=== PATIENT | male | born 1985 | race Caucasian/White ===

== ENCOUNTER 2022-07-13 16:09 | Emergency (ER) | payer MEDICAID ==
[~2022-07-13] VITALS: Ht 167.6 cm; Wt 70.0 kg
[2022-07-13] MEDS ORDERED: ACETAMINOPHEN 325MG TABLET PO ONE (17:30)
[2022-07-13] MEDS ORDERED: KETOROLAC 60MG/2ML VIAL IM ONE (17:45)
[2022-07-13] MEDS ORDERED: IBUP-2029 MT (17:46)
[2022-07-13 18:09] VITALS: BP 148/88
== END 2022-07-13 18:11 | disposition home or self-care (01) ==
LOC: ER 16:09
DX: R51.9 Headache, unspecified (principal); E11.9 Type 2 diabetes mellitus without complications; E78.00 Pure hypercholesterolemia, unspecified; I10 Essential (primary) hypertension; I25.2 Old myocardial infarction
CPT/HCPCS: 70450; 96372; 99284; J1885

== ENCOUNTER 2022-09-10 22:30 | Emergency (ER) | payer SELFPAY ==
[~2022-09-10] VITALS: Ht 167.6 cm; Wt 71.6 kg
[~2022-09-10 22:30] MED LIST: IBUP-2029 MT
[2022-09-11] MEDS ORDERED: LIDOCAINE HCL 1% 20ML VIAL (Pyxis) INJ INFIL ONE (00:45)
[2022-09-11] MEDS ORDERED: HYDROCODONE/ACETAMINOPHEN 10/325MG TABLET PO ONE (00:45)
[2022-09-11 03:46] VITALS: BP 112/77
== END 2022-09-11 03:50 | disposition home or self-care (01) ==
LOC: ER 22:30
DX: S62.396A Other fracture of fifth metacarpal bone, right hand, initial encounter for closed fracture (principal); E11.9 Type 2 diabetes mellitus without complications; W18.39XA Other fall on same level, initial encounter; Y93.89 Activity, other specified; Y92.9 Unspecified place or not applicable
CPT/HCPCS: 26605; 73080; 73090; 73130; 99284

== ENCOUNTER 2025-09-22 06:22 | Inpatient (IN) | payer MEDICAID ==
[~2025-09-22] VITALS: Ht 167.6 cm; Wt 67.1 kg
[~2025-09-22 06:22] MED LIST changes: +IBUP-1455 MT; -IBUP-2029 MT
[2025-09-22] MEDS ORDERED: METF-416 PO (06:49)
[2025-09-22] MEDS ORDERED: ASPI-1497 PO (06:49)
[2025-09-22] MEDS ORDERED: LIP40 PO (06:49)
[2025-09-22] MEDS ORDERED: EMPA10TA PO (06:49)
[2025-09-22] MEDS ORDERED: CLOP75TA33 PO (06:49)
[2025-09-22] MEDS ORDERED: LIDOCAINE HCL 1% 20ML VIAL ONE (08:07)
[2025-09-22] MEDS ORDERED: IODIXANOL 320MG/ML 100 ML BOTTLE IV ONE (08:07)
[2025-09-22] MEDS ORDERED: HEPARIN 1000 UNITS/ML 10ML ONE ×2 (08:07→09:34)
[2025-09-22] MEDS ORDERED: FENTANYL CITRATE/PF 50MCG/ML 2ML VIAL ONE (08:52)
[2025-09-22] MEDS ORDERED: MIDAZOLAM HCL 2 MG/2 ML VIAL ONE (08:52)
[2025-09-22] MEDS ORDERED: ASPIRIN 325MG EC TABLET PO ONE (09:40)
[2025-09-22] MEDS ORDERED: CLOPIDOGREL 75MG TABLET ONE (09:40)
[2025-09-22] MEDS ORDERED: ACETAMINOPHEN 325MG TABLET PO PRN (10:00)
[2025-09-22] MEDS ORDERED: ONDANSETRON HCL 4MG/2ML INJ IV PRN (10:00)
[2025-09-22] MEDS ORDERED: ATROPINE SULFATE 1MG/10ML SYR IV PRN (10:00)
[2025-09-22 10:29] VITALS: BP 157/92; PULSE 68; RESP 14; TEMP 36.8072
[2025-09-22] MEDS ORDERED: DEXTROSE 50% WATER 50ML SYRINGE IV PRN (10:30)
[2025-09-22 12:00] VITALS: BP 148/87; PULSE 67; RESP 20; TEMP 36.7; O2SAT 99
[2025-09-22] MEDS: BLOOD SUGAR DIAGNOSTIC STRIP TEST SCH (12:32)
[2025-09-22] MEDS: EMPAGLIFLOZIN 10MG TABLET PO SCH (12:59)
[2025-09-22] MEDS: LISINOPRIL 10MG TABLET PO SCH (12:59)
[2025-09-22] MEDS: INSULIN LISPRO 100 UNITS/ML SUBCUT SCH (13:00)
[2025-09-22 16:00] VITALS: BP 163/85; PULSE 68; RESP 22; TEMP 36.9; O2SAT 99
[2025-09-22] MEDS ORDERED: CLONIDINE 0.1MG TABLET PO PRN (17:15)
[2025-09-22 20:00] VITALS: BP 140/85; PULSE 95; RESP 20; TEMP 36.8; O2SAT 99
[2025-09-22] MEDS: ATORVASTATIN CALCIUM 40MG TABLET PO SCH (22:10)
[2025-09-23] VITALS: BP 120/74; PULSE 75; RESP 18; TEMP 36.2; O2SAT 100
[2025-09-23 04:00] VITALS: BP 135/86; PULSE 72; RESP 18; TEMP 36.6; O2SAT 96
[2025-09-23 07:23] LABS: CREATININE 1.0 mg/dL (0.6-1.3); UREA NITROGEN BLOOD 19 mg/dL (9-23)
[2025-09-23 07:30] LABS: BASOPHILS % 0.7 % (0.0-2.0); EOSINOPHILS % 4.4 % (0.0-5.0); HEMATOCRIT. 37.8 % (42.0-52.0); HEMOGLOBIN. 12.6 g/dL (14.0-18.0); LYMPHOCYTES % 31.3 % (20.0-50.0); MEAN PLATELET VOLUME 8.5 fl (7.4-10.4); MONOCYTES % 6.8 % (2.0-8.0); NEUTROPHILS % 56.8 % (40.0-76.0); PLATELET 297 x1000/uL (130-400); RED BLOOD CELL COUNT 4.49 mill/uL (4.7-6.1); RED CELL DISTRIBUTION WIDTH 13.6 % (11.6-14.6)
[2025-09-23 07:58] LABS: HEPATITIS C AB NON REACTIVE (Neg) (Negative)
[2025-09-23 08:00] VITALS: BP 150/91; PULSE 72; RESP 11; TEMP 36.9; O2SAT 99
[2025-09-23] MEDS: CLOPIDOGREL 75MG TABLET PO SCH (08:11)
[2025-09-23] MEDS: ASPIRIN 325MG TABLET PO SCH (09:00)
[2025-09-23] MEDS: METOPROLOL SUCCINATE 50MG ER TABLET PO SCH (11:03)
[2025-09-23 12:00] VITALS: BP 147/70; PULSE 68; RESP 16; TEMP 36.9; O2SAT 100
[2025-09-23 13:06] VITALS: BP 126/87; PULSE 73; RESP 22; TEMP 98
== END 2025-09-23 13:35 | disposition home or self-care (01) | DRG 175 ==
LOC: CCL 06:22 → 3WST 10:17
PROVIDERS: ADMIT Specialist; ATTEND Specialist
PROC: 027034Z Dilation of Coronary Artery, One Artery with Drug-eluting Intraluminal Device, Percutaneous Approach (ICD-10-PCS; principal; 2025-09-22)
PROC: 4A023N7 Measurement of Cardiac Sampling and Pressure, Left Heart, Percutaneous Approach (ICD-10-PCS; 2025-09-22)
PROC: B211YZZ Fluoroscopy of Multiple Coronary Arteries using Other Contrast (ICD-10-PCS; 2025-09-22)
DX: I25.10 Atherosclerotic heart disease of native coronary artery without angina pectoris (principal); E11.9 Type 2 diabetes mellitus without complications; I10 Essential (primary) hypertension; E78.00 Pure hypercholesterolemia, unspecified; I25.2 Old myocardial infarction; Z79.899 Other long term (current) drug therapy; Z95.5 Presence of coronary angioplasty implant and graft
CPT/HCPCS: 36415; 80048; 82962; 85025; 85347; 86705; 87340; 92928; 93005; 93458; A4606; C1769; C1887; C1893; J1644; J1815; J2003; J2250; J3010; Q9967; C1874